=== PATIENT | male | born 1975 | race Caucasian/White ===

== ENCOUNTER 2024-07-14 21:50 | Emergency (ER) | payer OTHER, SELFPAY ==
[2024-07-14 21:59] VITALS: BP 164/107; PULSE 114; TEMP 36.6; O2SAT 98; BMI 28.9
--- NOTE | 2024-07-14 22:06 | XR_ITS ---
The [address] [address] Patient Name: BARBI ISLAS MRN: [id number] date: 1975 Sex: M Assigned Patient Location: ER Current Patient Location: ED.MAIN Accession/Order Number: [id number] Exam Date: 07/14/2024 22:09 Report Date: 07/14/2024 22:55 At the request of: STEPHAN MOMIN Procedure: XR chest 1V EXAM: XR chest 1V TECHNIQUE: Single AP view chest HISTORY: SOB COMPARISON: 11/04/2015 FINDINGS: The heart and mediastinum are unremarkable. The lung alonso are clear of any acute infiltrate, effusion or mass. No acute bony abnormality. XR/XR chest 1V IMPRESSION: No acute pulmonary disease. Electronically authenticated by: MARIANNE ANDERSEN Date: 07/14/2024 22:55
--- NOTE | 2024-07-14 22:08 | ED.URI1 ---
HPI - URI/Sore Throat General Chief Complaint: Upper Respiratory Infection Stated Complaint: CHEST CONGESTION, INFLU A EXPOSURE Time Seen by Provider: 07/14/24 22:05 Source: patient History of Present Illness HPI Narrative: 49-year-old male presents to the emergency department for cough. He has had the symptoms for 3 days and sometimes he feels like he is wheezing. He has been around some children who have influenza and he is worried about pneumonia. No hemoptysis or vomiting. Related Data Previous Rx's ?Medication ?Instructions ?Recorded albuterol sulfate 90 mcg/actuation 2 inh inhalation Q4H PRN shortness 07/14/24 aerosol inhaler of breath or wheezing #8.5 grams benzonatate 100 mg capsule 100 mg PO TID PRN cough #20 caps 07/14/24 Allergies Allergy/AdvReac Type Severity Reaction Status Date / Time No Known Drug Allergies Allergy Verified 07/14/24 21:59 Review of Systems ROS Narrative A ten point review of systems is negative except as noted above. PFSH PFSH Social History Little interest or pleasure in doing things: not at all Feeling down, depressed, or hopeless: not at all Exam Narrative Exam Narrative: Nurses note and vital signs reviewed and patient is not hypoxic. General: The patient appears well and in no apparent distress. Patient is resting comfortably on cart. Skin: Warm, dry, no pallor noted. There is no rash noted. Head: Normocephalic, atraumatic Eye: Normal conjunctiva, no drainage Ears, Nose, Mouth, and Throat: oral mucosa is moist. Nares patent. Cardiovascular: Regular Rate and Rhythm Respiratory: Patient is in no distress, no accessory muscle use, lungs show expiratory rhonchi Back: non-tender GI: Soft and nontender Musculoskeletal: The patient has no evidence of calf tenderness, no pitting edema, symmetrical pulses noted bilaterally Neurological: Awake and alert Psychiatric: Cooperative Constitutional Vital Signs, click to edit/add: Last Vital Signs Temp 97.9 F 07/14/24 21:59 Pulse 104 H 07/14/24 22:24 Resp 18 07/14/24 22:24 BP 142/88 H 07/14/24 22:57 Pulse Ox 95 07/14/24 22:24 O2 Del Method Room Air 07/14/24 22:24 Course Vital Signs Vital signs: Vital Signs Temperature 97.9 F 07/14/24 21:59 Pulse Rate 114 H 07/14/24 21:59 Respiratory Rate 20 07/14/24 21:59 Blood Pressure 164/107 H 07/14/24 21:59 Pulse Oximetry 98 07/14/24 21:59 Temperature 97.9 F 07/14/24 21:59 Pulse Rate 104 H 07/14/24 22:24 Respiratory Rate 18 07/14/24 22:24 Blood Pressure 142/88 H 07/14/24 22:57 Pulse Oximetry 95 07/14/24 22:24 Oxygen Delivery Method Room Air 07/14/24 22:24 MDM - URI/Sore Throat MDM Narrative Medical decision making narrative: Infant is positive. He was given an aerosol treatment and his chest x-ray is negative. He is discharged home on Tessalon and albuterol. Treatment diagnosis and follow-up were discussed with the patient Differential Diagnosis Differential diagnosis: Likely upper respiratory infection, viral infection, influenza and other (Pneumonia) Lab Data Attestation: I reviewed the patient's lab results. Labs: Lab Results 07/14/24 Range/Units 22:00 Influenza Type A Ag Positive A Influenza Type B Ag Negative Imaging Data Chest x-ray: Radiologist's impression: ITS Impressions Chest X-Ray 07/14/24 22:06 IMPRESSION: No acute pulmonary disease. Electronically authenticated by: MARIANNE ANDERSEN Date: 07/14/2024 22:55 Discharge Plan Discharge Chief Complaint: Upper Respiratory Infection Clinical Impression: Influenza Patient Disposition: Home, Self-Care Time of Disposition Decision: 23:10 Condition: Good Mode of Transportation: Private Vehicle Prescriptions / Home Meds: New benzonatate 100 mg capsule 100 mg PO TID PRN (Reason: cough) Qty: 20 0RF albuterol sulfate 90 mcg/actuation HFA aerosol inhaler 2 inh inhalation Q4H PRN (Reason: shortness of breath or wheezing) Qty: 8.5 0RF Print Language: Fijian Instructions: Influenza (ED) Referrals: ARLEN BHAT [Family Provider] - 1 week
[2024-07-14 22:24] VITALS: PULSE 104; O2SAT 95
[2024-07-14] MEDS: ALBUTEROL SULFATE 2.5 MG/3 ML VIAL NEB IH (22:24)
[2024-07-14 22:36] LABS: Influenza Virus A Antigen Positive; Influenza Virus B Antigen Negative; Internal Control Within Normal Limits
[2024-07-14 22:57] VITALS: BP 142/88
[2024-07-14 23:13] VITALS: BP 142/88; PULSE 89; O2SAT 98
== END 2024-07-14 23:14 | disposition home or self-care (01) ==
PROVIDERS: Emergency Provider Emergency Medicine; Family Provider Family Medicine
DX: J10.1 Influenza due to other identified influenza virus with other respiratory manifestations (principal)
CPT/HCPCS: 71045; 87804; 94640; 99284